=== PATIENT | female | born 1965 | race African-American/Black ===

== ENCOUNTER 2020-09-04 22:34 | Inpatient (IN) | payer OTHER ==
[~2020-09-04] VITALS: Ht 177.8 cm; Wt 73.9 kg
[2020-09-05] VITALS (9 sets, daily range): BP systolic 123–144; BP diastolic 74–86
[2020-09-05 00:04] LABS: BASOPHILS % 0.6 % (0.0-1.0); EOSINOPHILS # (AUTO) 0.1 (0.0-0.4); EOSINOPHILS % 1.4 % (0.0-6.0); HEMATOCRIT 35.9 % (34.2-44.1); HEMOGLOBIN 11.8 g/dL (12.0-16.0); LYMPHOCYTES # (AUTO) 3.9 (1.0-3.2); MEAN CORPUSCULAR HEMOGLOBIN 28.2 pg (28-32); MEAN CORPUSCULAR HGB CONC 32.9 g/dL (31-35); MEAN CORPUSCULAR VOLUME 85.7 fL (81-99); MONOCYTES # (AUTO) 0.6 (0.2-0.8); MONOCYTES % 7.7 % (4.4-11.3); NEUTROPHILS # (AUTO) 2.5 (2.1-6.9); NEUTROPHILS % 35.2 % (38.7-80.0); PLATELET COUNT 167 x10e3/uL (140-360); RED BLOOD COUNT 4.19 x10e6/uL (3.6-5.1); RED CELL DISTRIBUTION WIDTH 15.4 % (11.7-14.4)
[2020-09-05 00:09] LABS: INR 1.08; PROTHROMBIN TIME 14.6 seconds (11.9-14.5)
[2020-09-05 00:10] LABS: PARTIAL THROMBOPLASTIN TIME 30.5 seconds (23.8-35.5)
[2020-09-05 00:20] LABS: ALANINE AMINOTRANSFERASE 19 IU/L (0-55); ALBUMIN 4.2 g/dL (3.5-5.0); ALBUMIN/GLOBULIN RATIO 1.4 (0.8-2.0); ALKALINE PHOSPHATASE 68 IU/L (40-150); ANION GAP 12.7 mmol/L (8-16); BLOOD UREA NITROGEN 7 mg/dL (7-26); BUN/CREATININE RATIO 9 (6-25); CALCIUM 9.6 mg/dL (8.4-10.2); CARBON DIOXIDE 25 mmol/L (22-29); CHLORIDE 104 mmol/L (98-107); CREATINE KINASE 159 IU/L (29-168); CREATININE, SERUM 0.76 mg/dL (0.57-1.11); EST GLOMERULAR FILTRATION RATE > 60 ML/MIN (60-); GLUCOSE 109 mg/dL (74-118); POTASSIUM 3.7 mmol/L (3.5-5.1); SODIUM 138 mmol/L (136-145)
[2020-09-05] MEDS ORDERED: ASPIRIN 81 MG CHEW TAB PO ONE (01:00)
[2020-09-05] MEDS ORDERED: DEXTROSE 50% SYRINGE 50 ML IV PRN (02:30)
[2020-09-05] MEDS ORDERED: METFORMIN500 MG/5 M (03:19)
[2020-09-05] MEDS ORDERED: GLIPIZIDE5 MG PO (03:19)
[2020-09-05] MEDS: INSULIN REGULAR, HUMAN 100 UNIT/1 ML 3ML VIAL SQ SCH ×4 (07:30→21:00)
[2020-09-05] MEDS ORDERED: ASPIRIN 81 MG ENTERIC COATED PO SCH (09:00)
[2020-09-05] MEDS ORDERED: LORAZEPAM INJ 2 MG/ML VIAL IV ONE ×2 (11:53→13:30)
[2020-09-05] MEDS ORDERED: ONDANSETRON HCL INJ 2MG/ML 2ML 2 MG/ML VIAL IV PRN (13:00)
[2020-09-05] MEDS ORDERED: ACETAMINOPHEN 325 MG TAB PO PRN (13:00)
[2020-09-05] MEDS ORDERED: DOCUSATE SODIUM 100 MG CAP PO PRN (13:00)
[2020-09-05] MEDS ORDERED: ZOLPIDEM TARTRATE 5 MG TAB PO PRN (13:00)
[2020-09-05 13:58] LABS: CHOL/HDL RATIO 2.7 (3.0-3.6)
[2020-09-05 15:22] LABS: CREATINE KINASE MB 3.1 ng/mL (0-5.0)
[2020-09-05] MEDS ORDERED: ENOXAPARIN SOD INJ 40 MG/0.4 ML SYR SC SCH (17:00)
[2020-09-05] MEDS: NICOTINE 14 MG/EA PATCH TOP SCH (18:17)
[2020-09-05] MEDS: FAMOTIDINE 20 MG TAB PO SCH (18:17)
[2020-09-05] MEDS ORDERED: ATORVASTATIN 20 MG TAB PO SCH (21:00)
[2020-09-06] VITALS: BP 133/72
[2020-09-06 04:00] VITALS: BP 126/74
[2020-09-06] MEDS ORDERED: NICODERM CQ1 EAC1 TOP (06:15)
[2020-09-06] MEDS ORDERED: LIPITOR20 MG PO (06:15)
[2020-09-06] MEDS ORDERED: ASPIRIN81 MG PO (06:15)
[2020-09-06 06:40] LABS: CHOL/HDL RATIO 2.8 (3.0-3.6)
[2020-09-06] MEDS: INSULIN REGULAR, HUMAN 100 UNIT/1 ML 3ML VIAL SQ SCH ×2 (07:30→12:20)
[2020-09-06 08:00] VITALS: BP 140/74
[2020-09-06 08:01] VITALS: BP 140/74
[2020-09-06] MEDS: FAMOTIDINE 20 MG TAB PO SCH (08:24)
[2020-09-06] MEDS: NICOTINE 14 MG/EA PATCH TOP SCH (08:25)
[2020-09-06] MEDS ORDERED: ASPIRIN 325 MG TAB PO SCH (09:00)
[2020-09-06 12:14] VITALS: BP 149/85
[2020-09-06] MEDS ORDERED: ONDANSETRON HCL 4 MG ORAL DISINTEGRATING TAB PO PRN (12:30)
[2020-09-06] MEDS ORDERED: NICOTINE 14 MG/EA PATCH TOP SCH (17:00)
== END 2020-09-06 13:45 | disposition home or self-care (01) | DRG 65 ==
LOC: ER 23:00 → ERHOLD 09-05 00:54 → MED/SURG 09-05 02:28 → OBSVTOIN 09-05 13:34
PROVIDERS: ADMIT Internal Medicine; ATTEND Internal Medicine
DX: I63.9 Cerebral infarction, unspecified (principal); G81.94 Hemiplegia, unspecified affecting left nondominant side; E78.5 Hyperlipidemia, unspecified; F17.210 Nicotine dependence, cigarettes, uncomplicated; E11.9 Type 2 diabetes mellitus without complications; Z11.59 Encounter for screening for other viral diseases
CPT/HCPCS: 36415; 70450; 80053; 80061; 82550; 82553; 82948; 83036; 83090; 84484; 85025; 85610; 85730; 93005; 93306; 93880; 99284; J1650; J2060; U0002